=== PATIENT | female | born 2005 | race Caucasian/White ===

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

== ENCOUNTER 2025-01-03 08:51 | Emergency (ER) | payer OTHER ==
[2025-01-03 08:59] VITALS: BP 130/72; PULSE 85; RESP 18; TEMP 98.2; BMI 29.2
[2025-01-03] MEDS ORDERED: KETOROLAC TROMETHAMINE 15 MG/ML VIAL ONE (10:47)
[2025-01-03] MEDS: KETOROLAC TROMETHAMINE 15 MG/ML VIAL IM ONE (10:55)
== END 2025-01-03 13:06 | disposition home or self-care (01) ==
LOC: JER 08:51
PROC: 3E0233Z Introduction of Anti-inflammatory into Muscle, Percutaneous Approach (ICD-10-PCS; principal; 2025-01-03)
DX: M54.6 Pain in thoracic spine (principal); M54.50 Low back pain, unspecified; M54.2 Cervicalgia; M79.89 Other specified soft tissue disorders; R50.9 Fever, unspecified
CPT/HCPCS: 72125-TC; 72128-TC; 72131-TC; 84703; 99285-25